=== PATIENT | female | born 1995 | race American Indian/Alaskan Native ===

== ENCOUNTER 2019-06-20 09:52 | Emergency (ER) | payer OTHER ==
[2019-06-20] MEDS ORDERED: TETRACAINE 0.5% OU ONE (11:08)
[2019-06-20] MEDS ORDERED: FUL-GLO OP ONE (11:09)
[2019-06-20] MEDS ORDERED: BSS OU ONE (11:09)
--- NOTE | 2019-06-20 11:12 | Emergency Department Report ---
Eye Injury/Foreign Body - HPI Duration: 1 Day Eye Location: Right Eye Symptoms: Eye Pain: Yes, Blurred Vision: No, Eye Redness: Yes, Grinding/Hammering Metal: No, Used Eye Protection: No, Contact Lens Use: Yes, Recalls Injury: No, Photophobia: Yes Other History: 24-year-old -[place]ish female presents to the emergency room complaining of right eye pain 1 day after putting contacts. Patient reports that her contact solution may have been dirty. Patient reports that when she placed her contacts on she noticed it was a white film over her eye. Patient reports that she did remove the contact. Patient complains of eye swelling and photosensitivity. ED Review of Systems ROS: Stated complaint: R EYE PAIN Other details as noted in HPI Comment: All other systems reviewed and negative Eyes: eye pain ED Past Medical Hx - Social History Smoking Status: Never Smoker Substance Use Type: Alcohol - Medications Home Medications: Home Medications Medication Instructions Recorded Confirmed Last Taken Type Erythromycin [Erythromycin Ophth 1 applic OD QID 10 Days #1 tube 06/20/19 Unknown Rx Oint] Ibuprofen [Motrin 600 MG tab] 600 mg PO Q8H PRN #30 tablet 06/20/19 Unknown Rx Eye Injury Exam - Exam General: Vital signs noted. No distress. Alert and acting appropriately. ED Course Vital Signs 06/20/19 06/20/19 10:02 10:17 Temperature 98.9 F 98.9 F Pulse Rate 83 86 Respiratory 18 16 Rate Blood Pressure 131/76 131/76 O2 Sat by Pulse 99 100 Oximetry ED Medical Decision Making - Medical Decision Making 24-year-old -Swedish female presents to the emergency room complaining of right eye pain 1 day after putting contacts. Patient reports that her contact solution may have been dirty. Patient reports that when she placed her contacts on she noticed it was a white film over her eye. Patient reports that she did remove the contact. Patient complains of eye swelling and photosensitivity. Critical care attestation.: If time is entered above; I have spent that time in minutes in the direct care of this critically ill patient, excluding procedure time. ED Disposition Clinical Impression: Corneal abrasion, left Disposition: DC-01 TO HOME OR SELFCARE Is pt being admited?: No Does the pt Need Aspirin: No Condition: Stable Instructions: Corneal Abrasion (ED) Additional Instructions: Please follow up with ophthalmology in the next 24-48 hours. Prescriptions: Erythromycin [Erythromycin Ophth Oint] 1 applic OD QID 10 Days #1 tube Ibuprofen [Motrin 600 MG tab] 600 mg PO Q8H PRN #30 tablet PRN Reason: Pain Referrals: RUTH ANN SANTOS MD [Staff Physician] - 3-5 Days [facility] [Provider Group] - 3-5 Days [facility] [Provider Group] - 3-5 Days Forms: Work/School Release Form(ED) ED Eye Prob EXAM - General Limitations: No Limitations Eyelids: Normal Inspection: Right Pupils: Regular, Round: Right, Reactive: Right Cornea: Fluorescein Uptake: Right, Abrasion: Right Extraocular Movement: Normal ENT exam: Positive: mucous membranes moist Neurological exam: Positive: alert, oriented X3, normal gait Psychiatric exam: Positive: normal affect, normal mood Skin exam: Positive: warm, dry, intact
[2019-06-20 11:49] VITALS: BP 137/85
== END 2019-06-20 12:00 | disposition home or self-care (01) ==
LOC: ED 09:52
DX: S05.02XA Injury of conjunctiva and corneal abrasion without foreign body, left eye, initial encounter (principal); X58.XXXA Exposure to other specified factors, initial encounter; Y93.89 Activity, other specified; Y92.89 Other specified places as the place of occurrence of the external cause; Y99.8 Other external cause status

== ENCOUNTER 2019-06-26 06:29 | Emergency (ER) | payer OTHER ==
[2019-06-26] MEDS ORDERED: BSS ONE (07:38)
[2019-06-26] MEDS ORDERED: TETRACAINE 0.5% OU PRN (07:39)
[2019-06-26] MEDS ORDERED: FUL-GLO OP ONE ×2 (07:39→07:41)
[2019-06-26] MEDS ORDERED: TETRACAINE 0.5% ONE (07:39)
[2019-06-26] MEDS ORDERED: BSS OU ONE (07:46)
--- NOTE | 2019-06-26 07:59 | Emergency Department Report ---
[facility] Chief Complaint: Eye Problems Stated Complaint: LEFT EYE PAIN Time Seen by Provider: 06/26/19 07:23 Duration: 1 Day Severity: mild Symptoms: Yes Eye Pain, Yes Contact Lens Use, No Eye Itching, No Eye Redness, No Mucous Drainage, No Purulent Drainage, No Blurred Vision, No Preceding URI, No H/O Allergic Rhinitis, No Trauma, No Fever, No Headache Other History: 23-year-old female who wears contacts presents to ED complaining of left eye irritation and pain after she took Her contact lens last night. She denies any trauma injuries to the eye. She denies vision loss. Patient states pain is located to that left eye and pain is worsened with light. ED Review of Systems ROS: Stated complaint: LEFT EYE PAIN Other details as noted in HPI Comment: All other systems reviewed and negative ED Past Medical Hx - Past Medical History Previous Medical History?: No - Surgical History Past Surgical History?: No - Social History Smoking Status: Never Smoker Substance Use Type: None - Medications Home Medications: Home Medications Medication Instructions Recorded Confirmed Last Taken Type Erythromycin [Erythromycin Ophth 1 applic OD QID 10 Days #1 tube 06/20/19 Unknown Rx Oint] Ibuprofen [Motrin 600 MG tab] 600 mg PO Q8H PRN #30 tablet 06/20/19 Unknown Rx Ketorolac Tromethamine [Ketorolac 1 - 2 drops OP BID #1 bottle 06/26/19 Unknown Rx Tromethamine 0.4% opth soln] Ofloxacin 0.3% [Ocuflox 0.3% opth] 1 - 2 drops OP TID #1 bottle 06/26/19 Unknown Rx [facility] Exam - Exam General: Vital signs noted. No distress. Alert and acting appropriately. Eye Exam: Left Injection, Left Fluorescein Uptake (at 6 o clock), Neither Chemosis, Neither Abnormal Pupil, Neither EOMI, Neither Eye Foreign Body, Neither Lid Foreign Body, Neither Mucous Discharge, Neither Purulent Discharge HEENT: No Nasal Congestion, No Pharyngeal Erythema Remainder of HEENT: Normal Lungs: Yes Clear Lung Sounds, Yes Good Air Exchange, No Wheezes, No Stridor, No Cough, No Nasal Flaring, No Retractions, No Use of Accessory Muscles Exam: PERRLA, EOMI, there is no vision loss. Vision is intact bilaterally. Patient able to open and close her eyes after eye kit examination ED Medical Decision Making - Medical Decision Making 24-year-old female presents with left eye corneal abrasion ED course: batista lamp test shows small corneal abrasion left eye 6:00. discussed this with the patient. 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 I discussed the patient is new or worsening symptoms to return to ED immediately Patient's vital signs are stable he's in no distress. Patient is vision is intact, visual acuity test performed, within normal limits. Discussed the patient to follow up with her primary care physician in 3-5 days. Critical care attestation.: If time is entered above; I have spent that time in minutes in the direct care of this critically ill patient, excluding procedure time. ED Disposition Clinical Impression: Corneal abrasion, left Disposition: DC-01 TO HOME OR SELFCARE Is pt being admited?: No Does the pt Need Aspirin: No Condition: Stable Instructions: Corneal Abrasion (ED) Additional Instructions: Make sure to follow up with the primary care physician as discussed. Take all your medications as you've been prescribed. If you have any worsening symptoms or develop new symptoms please return to ED immediately. Prescriptions: Ketorolac Tromethamine [Ketorolac Tromethamine 0.4% opth soln] 1 - 2 drops OP BID #1 bottle Ofloxacin 0.3% [Ocuflox 0.3% opth] 1 - 2 drops OP TID #1 bottle Referrals: KINGS GRULLON MD [Primary Care Provider] - 3-5 Days RUTH ANN SANTOS MD [Staff Physician] - 3-5 Days Forms: Accompanied Note, Work/School Release Form(ED) Time of Disposition: 08:00
== END 2019-06-26 08:06 | disposition home or self-care (01) ==
LOC: ED 06:29
DX: S05.02XA Injury of conjunctiva and corneal abrasion without foreign body, left eye, initial encounter (principal); Z79.899 Other long term (current) drug therapy; Z91.018 Allergy to other foods; X58.XXXA Exposure to other specified factors, initial encounter; Y93.89 Activity, other specified; Y92.89 Other specified places as the place of occurrence of the external cause; Y99.8 Other external cause status

== ENCOUNTER 2021-11-06 08:46 | Outpatient (CLI) | payer MEDICAID ==
[2021-11-06 09:20] VITALS: BP 123/62
[2021-11-06] MEDS ORDERED: LACTATED RINGERS 500 ML IV ONE (10:00)
[2021-11-06 10:20] LABS: Bacteria,Urine 1+ /HPF (Negative); Bilirubin,Urine NEG (Negative); Blood,Urine NEG (Negative); Color,Urine Yellow (Yellow); Protein,Urine <15 mg/dL mg/dL (Negative); RBC,Urine < 1.0 /HPF (0.0-6.0); Urobilinogen,Urine < 2.0 mg/dL (<2.0)
[2021-11-06 10:30] LABS: Amphetamine Screen,Urine Negative; Benzodiazepines Screen,Urine Negative; Cannabinoid Screen,Urine Negative; Cocaine Screen,Urine Negative; Methadone Screen,Urine Negative; Opiate Screen,Urine Negative
[2021-11-06] MEDS ORDERED: ACETAMINOPHEN 500 MG TAB PO ONE (11:00)
== END 2021-11-06 10:42 | disposition home or self-care (01) ==
LOC: TRG 08:46 → APU 08:47 → TRG 10:42
PROVIDERS: ATTEND Obstetrics & Gynecology
DX: O26.852 Spotting complicating pregnancy, second trimester (principal); O47.02 False labor before 37 completed weeks of gestation, second trimester; Z3A.21 21 weeks gestation of pregnancy
CPT/HCPCS: 59025; 80307; 81001